=== PATIENT | female | born 1950 | race Caucasian/White ===

== ENCOUNTER → 2019-05-18 | Outpatient (CLI) | payer MEDICARE ==
[~2019-05-18] MED LIST: B12 PO; CITA20TA6 PO; CLIN150C14 PO; NORT50CA52 PO; Vitamin C PO
[2019-05-18 11:17] LABS: MICROSCOPIC NOT IND
[2019-05-18 11:22] LABS: BASOPHILS # (AUTO) 0.02 x10^3/uL (0-0.1); BASOPHILS % (AUTO) 0 % (0-1); EOSINOPHILS # (AUTO) 0.13 x10^3/uL (0-0.4); EOSINOPHILS % (AUTO) 2 % (1-7); LYMPHOCYTES # (AUTO) 1.57 x10^3/uL (1-3.4); LYMPHOCYTES % (AUTO) 21 % (22-44); MD NO; MEAN CORPUSCULAR HEMOGLOBIN 29.2 pg (27.0-34.8); MEAN CORPUSCULAR HGB CONC 32.4 g/dL (32.4-35.8); MEAN PLATELET VOLUME 7.8 fL (7.4-10.4); MONOCYTES # (AUTO) 0.51 x10^3/uL (0.2-0.8); MONOCYTES % (AUTO) 7 % (2-9); NEUTROPHILS % (AUTO) 70 % (42-75); PLATELET COUNT 285 x10^3/uL (130-400); RED BLOOD COUNT 4.62 x10^6/uL (3.82-5.3); RED CELL DISTRIBUTION WIDTH 14.3 % (9.6-15.2)
[2019-05-18 11:23] LABS: CULTURE INDICATED? NO
[2019-05-18 11:29] LABS: INTERNATIONAL NORMALIZED RATIO 0.97 (0.93-1.1); PROTHROMBIN TIME 10.2 Seconds (9.6-11.5)
[2019-05-18 11:30] LABS: ANION GAP 3 mmol/L (5-15); CALCIUM 8.8 mg/dL (8.5-10.1); CHLORIDE 104 mmol/L (98-107); CREATININE 1.02 mg/dL (0.55-1.02)
== END | disposition home or self-care (01) ==
LOC: STAR 09:36
PROVIDERS: ATTEND Orthopaedic Surgery
DX: Z01.818 Encounter for other preprocedural examination (principal); M17.12 Unilateral primary osteoarthritis, left knee
CPT/HCPCS: 36415; 80048; 81003; 83036; 85025; 85610; 85730; 87081; 87806; 93005; G0475

== ENCOUNTER 2019-05-28 09:56 | Observation (INO) | payer MEDICARE ==
[~2019-05-28] VITALS: Ht 157.5 cm; Wt 86.8 kg
[~2019-05-28 09:56] MED LIST changes: +EPINEPHRINE 1 MG/ML, 1ML ONE; +KETOROLAC 60 MG/2 ML ONE; +SODIUM CHLORIDE 0.9% 50 ML ONE; +TRANEXAMIC ACID 100 MG/ML, 10ML ONE
[2019-05-28] MEDS ORDERED: LACTATED RINGERS 1,000 ML IV SCH (10:20)
[2019-05-28 10:25] VITALS: BP 113/78
[2019-05-28] MEDS ORDERED: ROPIvacaine/PF 0.2%, 20 ML ONE (10:49)
[2019-05-28] MEDS ORDERED: GABAPENTIN 300 MG CAPSULE PO ONE (11:00)
[2019-05-28] MEDS ORDERED: ACETAMINOPHEN 500 MG TABLET PO ONE (11:00)
[2019-05-28] MEDS ORDERED: FENTANYL PF 250 MCG/5ML ONE (11:58)
[2019-05-28] MEDS ORDERED: MIDAZOLAM 1 MG/ML, 2ML ONE (11:58)
[2019-05-28] MEDS ORDERED: VANCOMYCIN 1,000 MG ONE (12:26)
[2019-05-28] MEDS ORDERED: CLINDAMYCIN 150 MG/ML, 6ML ONE (12:26)
[2019-05-28] MEDS ORDERED: PHENYLEPHRINE 10 MG/ML ONE (12:37)
[2019-05-28] MEDS ORDERED: PROPOFOL 10 MG/ML, 20ML ONE (13:19)
[2019-05-28] MEDS ORDERED: DEXAMETHASONE 4 MG/ML, 1ML ONE (13:19)
[2019-05-28] MEDS ORDERED: LIDOCAINE-MPF 2% ,5ML ONE (13:19)
[2019-05-28] MEDS ORDERED: ONDANSETRON 2MG/ML, 2ML ONE (13:19)
[2019-05-28] MEDS ORDERED: BUPIVACAINE/PF 0.25% ONE (13:19)
[2019-05-28] MEDS ORDERED: TRANEXAMIC ACID 1,000 MG in SODIUM CHLORIDE 0.9% 100 ML IVPB ONE (14:30)
[2019-05-28] MEDS: KETOROLAC 30 MG/1 ML IV SCH ×2 (14:30→22:33)
[2019-05-28] MEDS ORDERED: METOPROLOL 1 MG/ML, 5ML IV PRN (14:30)
[2019-05-28] MEDS ORDERED: HYDROmorphone 1 MG/ML, 1ML INJ IVPush PRN (14:30)
[2019-05-28] MEDS ORDERED: ONDANSETRON 4 MG TABLET PO PRN (14:30)
[2019-05-28] MEDS ORDERED: DIPHENHYDRAMINE 25 MG CAPSULE PO PRN (14:30)
[2019-05-28] MEDS ORDERED: PROMETHAZINE 25 MG/ML, 1ML IM PRN (14:30)
[2019-05-28] MEDS ORDERED: PSYLLIUM PACKET PO PRN (14:30)
[2019-05-28] MEDS ORDERED: SENNA/DOCUSATE TABLET PO PRN (14:30)
[2019-05-28] MEDS ORDERED: KETOROLAC 30 MG/1 ML ONE (14:30)
[2019-05-28] MEDS ORDERED: ALBUTEROL/IPRATROPIUM 2.5MG/0.5MG, 3 ML NPPB PRN (14:30)
[2019-05-28] MEDS ORDERED: OXYcodone IR 5MG TABLET PO PRN (14:30)
[2019-05-28] MEDS ORDERED: MEPERIDINE/PF 25MG/ML,1ML IVPush PRN (14:30)
[2019-05-28] MEDS ORDERED: MAGNESIUM HYDROXIDE 8%, 30ML UDC PO PRN (14:30)
[2019-05-28] MEDS ORDERED: PROMETHAZINE 25 MG/ML, 1ML IV PRN (14:30)
[2019-05-28] MEDS ORDERED: FENTANYL PF 100 MCG/2ML IV PRN (14:30)
[2019-05-28] MEDS ORDERED: ALUMINUM/MAG/SIMETHICONE 30 ML UDC PO PRN (14:30)
[2019-05-28] MEDS ORDERED: hydrALAzine 20 MG/ML, 1ML IV PRN (14:30)
[2019-05-28] MEDS ORDERED: ONDANSETRON 2MG/ML, 2ML IV PRN (14:30)
[2019-05-28] MEDS ORDERED: MIDAZOLAM 1 MG/ML, 2ML IV PRN (14:30)
[2019-05-28] MEDS ORDERED: ACETAMINOPHEN 650 MG/20.3 ML UDC PO PRN (14:30)
[2019-05-28] MEDS ORDERED: OXYcodone 5 MG/5 ML ORAL.SOL UDC PO PRN (14:30)
[2019-05-28] MEDS ORDERED: HYDROmorphone 2 MG/ML, 1ML IVPush PRN (14:30)
[2019-05-28] MEDS ORDERED: POLYETHYLENE GLYCOL 17 GM PACKET PO PRN (14:30)
[2019-05-28] MEDS ORDERED: DIPHENHYDRAMINE 50 MG/ML, 1ML IVPush PRN (14:30)
[2019-05-28] MEDS ORDERED: OXYcodone 5 MG/5 ML ORAL.SOL UDC ONE (14:55)
[2019-05-28] MEDS ORDERED: FENTANYL PF 100 MCG/2ML ONE (14:55)
[2019-05-28] MEDS: D5%-0.45NACL+KCL 20MEQ 1,000 ML IV SCH (17:30)
[2019-05-28] MEDS: ASPIRIN 81 MG TABLET EC PO SCH ×2 (17:30→21:00)
[2019-05-28 19:14] VITALS: BP 128/80
[2019-05-28] MEDS: DOCUSATE 100 MG CAPSULE PO SCH (21:23)
[2019-05-28] MEDS: CLINDAMYCIN PMX 600MG/50ML 50 ML IVPB SCH (21:23)
[2019-05-28 23:51] VITALS: BP 112/64
[2019-05-29] MEDS ORDERED: VANCOMYCIN PMX 1GM/200ML 200 ML IVPB SCH
[2019-05-29 02:58] VITALS: BP 121/67
[2019-05-29] MEDS: D5%-0.45NACL+KCL 20MEQ 1,000 ML IV SCH (03:00)
[2019-05-29] MEDS: CLINDAMYCIN PMX 600MG/50ML 50 ML IVPB SCH (04:51)
[2019-05-29] MEDS ORDERED: DEXAMETHASONE 4 MG/ML, 1ML IVPush ONE (06:00)
[2019-05-29] MEDS: KETOROLAC 30 MG/1 ML IV SCH (06:22)
[2019-05-29 07:13] VITALS: BP 105/68
[2019-05-29] MEDS ORDERED: TAMSULOSIN 0.4 MG CAP.ER.24H PO SCH (09:00)
[2019-05-29] MEDS ORDERED: NORTRIPTYLINE 50 MG CAPSULE PO SCH (09:00)
[2019-05-29] MEDS ORDERED: CITALOPRAM 20 MG TABLET PO SCH (09:00)
[2019-05-29] MEDS: ASPIRIN 81 MG TABLET EC PO SCH (09:18)
[2019-05-29] MEDS: DOCUSATE 100 MG CAPSULE PO SCH (09:18)
== END 2019-05-29 12:37 | disposition home or self-care (01) ==
LOC: OUT 09:56 → ORIP 14:15 → 4NE 15:31 → DCLOUNGE 05-29 12:04
PROVIDERS: ADMIT Orthopaedic Surgery; ATTEND Orthopaedic Surgery
DX: M17.12 Unilateral primary osteoarthritis, left knee (principal); G47.33 Obstructive sleep apnea (adult) (pediatric); F32.9 Major depressive disorder, single episode, unspecified; E66.9 Obesity, unspecified; Z88.0 Allergy status to penicillin; Z88.2 Allergy status to sulfonamides; Z79.899 Other long term (current) drug therapy; Z79.82 Long term (current) use of aspirin
CPT/HCPCS: 27447; 36415; 73560; 85014; 85018; 96365; 96366; 96375; 96376; 97116; 97150; 97161; C1713; C1776; G0378; J0171; J1100; J1885; J2250; J2370; J2405; J2704; J3010; J3370; J3480; J3490; J7120; S0077; J2795